=== PATIENT | male | born 1995 | race Caucasian/White ===

== ENCOUNTER 2024-04-20 02:30 | Emergency (ER) | payer OTHER, SELFPAY ==
[2024-04-20] VITALS (7 sets, daily range): BP systolic 111–119; BP diastolic 69–78; PULSE 79–101; RESP 16–23; TEMP 37.1; O2SAT 96–98; BMI 30.2
--- NOTE | 2024-04-20 02:34 | EKG_ITS ---
[address] [address] Test Date: 2024-04-20 Pat Name: Jose Maria Stephens Department: [facility] Room: Gender: Male [employer]: SANGITA : 1995 Requested By: Order Number: [id number] Reading MD: Tyrone Champagne Measurements Intervals [place] Rate: 90 P: 50 [place]: 154 QRS: 16 QRSD: 96 T: 11 QT: 330 QTc: 403 Interpretive Statements Normal sinus rhythm Electronically Signed On 04-23-2024 8:30:05 PDT by Tyrone Champagne
--- NOTE | 2024-04-20 02:41 | ED.GENADULT ---
HPI - General Adult General Chief complaint: Arrhythmia/Palpitations Stated complaint: left arm tingling, afib Time Seen by Provider: 04/20/24 02:34 History of Present Illness HPI narrative: 78-year-old male with history of SVT since 2013, he believes 3 prior episodes, taking metoprolol tartrate 25 mg twice daily in the past, ran out of this prescription a few weeks ago, tonight having fast heart rate palpitation like symptoms, his apple watch indicated that he might be in atrial fibrillation/flutter, here for further evaluation. No prior atrial fibrillation/flutter diagnosis. He had some transient left arm tingling sensation that has seemed to resolve without specific treatment/maneuvers. He would like refill of his metoprolol tartrate medication. Related Data Previous Rx's Medication Instructions Recorded metoprolol tartrate 25 mg tablet 25 mg PO BID #60 tabs 04/20/24 Allergies Allergy/AdvReac Type Severity Reaction Status Date / Time Penicillins Allergy Hives Verified 04/20/24 02:45 Patient History Social History Smoking Status: Current every day smoker Exam Narrative Exam Narrative: GENERAL: Well-developed patient, in mild distress. HEAD: Atraumatic. Normocephalic. EYES: Pupils equal round and reactive. Extraocular motions intact. No scleral icterus. No injection or drainage. ENT: Nose without bleeding, purulent drainage. Throat without erythema, tonsillar hypertrophy or exudate. Airway patent. NECK: Trachea midline. Non tender CARDIOVASCULAR: Regular rate and rhythm without murmurs, gallops, or rubs. RESPIRATORY: Clear to auscultation. Breath sounds equal bilaterally. No wheezes, rales, or rhonchi. GASTROINTESTINAL: Abdomen soft, non-tender, nondistended. EXTREMITIES: No edema or joint tenderness. BACK: Nontender without deformity or crepitance. No flank tenderness. NEURO: AOx3. Motor functions grossly nonfocal SKIN: No rash or erythema of visible areas Initial Vital Signs Initial Vital Signs: Vital Signs Temperature 98.7 F 04/20/24 02:46 Pulse Rate 101 H 04/20/24 02:46 Respiratory Rate 16 04/20/24 02:46 Blood Pressure 117/78 04/20/24 02:46 Pulse Oximetry 96 04/20/24 02:46 Oxygen Delivery Method Room Air 04/20/24 02:46 Course Orders Ordered: Discontinued Medications Metoprolol Succinate (Metoprolol Er 25 Mg Tablet) 25 mg PO NOW ONE Stop: 04/20/24 03:01 Last Admin: 04/20/24 03:08 Dose: Not Given Documented By: NARDA Metoprolol Tartrate (Metoprolol Ir 25 Mg Tablet) 25 mg PO NOW ONE Stop: 04/20/24 03:05 Last Admin: 04/20/24 03:07 Dose: 25 mg Documented By: NARDA Vital Signs Vital signs: Vital Signs - 8 hr 04/20/24 02:46 04/20/24 02:54 04/20/24 03:00 Temperature 98.7 F Pulse Rate 101 H 89 92 H Respiratory Rate 16 22 19 Blood Pressure 117/78 Pulse Oximetry 96 97 98 Oxygen Delivery Method Room Air 04/20/24 03:04 04/20/24 03:04 04/20/24 03:30 Temperature Pulse Rate 94 H 94 H Respiratory Rate 23 23 Blood Pressure 119/73 Pulse Oximetry 97 96 Oxygen Delivery Method Room Air 04/20/24 03:30 04/20/24 04:00 04/20/24 04:00 Temperature Pulse Rate 88 Respiratory Rate 19 Blood Pressure 118/71 116/69 Pulse Oximetry 96 Oxygen Delivery Method 04/20/24 04:30 04/20/24 04:30 Temperature Pulse Rate 79 Respiratory Rate 17 Blood Pressure 111/69 Pulse Oximetry 96 Oxygen Delivery Method Room Air Medical Decision Making Lab Data Lab results reviewed: Yes I reviewed the patient's lab results. Lab results narrative: White blood cell count 8000, hemoglobin 15.7, platelets adequate. Basic metabolic panel results unremarkable. ALT 83 mild elevation, other liver functions normal. Lipase normal. Troponin negative. BNP normal. 04/20/24 02:44 04/20/24 02:44 Labs: Lab Results 04/20/24 Range/Units 02:44 WBC 8.0 (4.5-11.0) X10^3/uL RBC 5.38 (4.5-5.9) X10^6/uL Hgb 15.7 (13.5-17.5) g/dL Hct 46.0 (41-53) % MCV 85.4 (80-100) fL MCH 29.2 (26-34) PG MCHC 34.1 (30-36) % RDW 14.0 (11.6-14.8) % Plt Count 308 (150-400) X10^3/uL Neut % (Auto) 56.0 (50-75) % Lymph % (Auto) 33.2 (25-40) % [place] % (Auto) 9.1 (3-14) % Eos % (Auto) 1.2 L (2-4) % Baso % (Auto) 0.5 (0-2) % Neut # (Auto) 4500 (5057-5003) /uL Lymph # (Auto) 2600 (8219-5435) /uL [place] # (Auto) 700 (0-900) /uL Eos # (Auto) 100 (0-450) /uL Baso # (Auto) 0 (0-100) /uL PT 11.0 (9.4-12.5) SECONDS INR 1.0 (0.9-1.3) APTT 34 (25.1-36.5) SECONDS Sodium 140 (137-145) mmol/L Potassium 4.3 (3.4-5.1) mmol/L Chloride 104 (98-107) mmol/L Carbon Dioxide 24 (22-32) mmol/L BUN 19 (9-20) mg/dL Creatinine 1.16 (0.66-1.25) mg/dL Estimated GFR > 60 (>60) mL/min BUN/Creatinine Ratio 16.4 (6-22) Glucose 99 (70-100) mg/dL Calcium 9.2 (8.4-10.2) mg/dL Magnesium 1.7 (1.6-2.3) mg/dL Total Bilirubin 0.6 (0.2-1.3) mg/dL AST 45 (17-59) IU/L ALT 83 H (<50) IU/L Alkaline Phosphatase 69 (38-126) U/L Total Creatine Kinase 164 (55-170) U/L Troponin I < 0.012 (0.01-0.034) ng/mL NT-Pro-B Natriuret Pep < 20 (<125) pg/mL Total Protein 8.8 H (6.3-8.2) g/dL Albumin 5.0 (3.5-5.0) g/dL Globulin 3.8 (1.7-4.1) g/dL Albumin/Globulin Ratio 1.3 (1.0-2.8) Lipase 87 (23-300) U/L ECG Data Attestation: I personally reviewed and interpreted this ECG as follows: Interpretation: Normal sinus rhythm with rate 90, no obvious ST segment elevation or depression changes. DC 154, QRS 96, QTC 403. MDM Narrative Medical decision making narrative: 28-year-old male with history of SVT previously on metoprolol but ran out, having palpitations and heart racing symptoms. Apple watch recording had concerns about atrial fibrillation/flutter which would be new diagnosis if confirmed. EKG here showed sinus rhythm. No ectopy on monitor. Screening labs sent were unremarkable. Troponin negative. Chest x-ray single view. Impressions: ?No acute findings.? See teleradiology report. Initial lab studies unremarkable, as above. Metoprolol tartrate 25 mg oral dose given, prescription sent to his pharmacy for refill of metoprolol tartrate 25 mg p.o. b.i.d., one month supply. Patient initially seemed amenable to waiting for interval repeat troponin blood test, then decided he would not want to have repeat troponin. Encouraged to take his metoprolol tartrate refills. Follow up with PCP advised. Discharge Plan Departure Patient Disposition: Home Clinical Impression: Palpitations, History of supraventricular tachycardia Instructions: DI for Arrhythmias Activity Restrictions/Additional Instructions: Mr Stephens, History of SVT since at least 2013, on metoprolol in the past but ran out of this medication, now having palpitation and heart racing symptoms, you are apple watch indicated that you might be having atrial fibrillation/flutter which would be a new rhythm diagnosis. EKG shows normal sinus rhythm. Blood testing showed normal electrolytes, no evidence of heart attack on initial troponin. You declined having repeat interval troponin drawn. Oral metoprolol tartrate dose given, with prescription sent to your pharmacy for restart. Consider Holter heart monitoring in follow up. Discuss this with your regular provider in follow up. Return earlier to this/nearest emergency department for any change worsening symptoms or any concerns prior. Thank you for allowing our team to evaluate you today. Prescriptions: New metoprolol tartrate 25 mg tablet 25 mg PO BID Qty: 60 0RF Stand Alone Forms: Patient Portal/API/Survey
--- NOTE | 2024-04-20 02:52 | DI.RAD.S_ITS ---
PROCEDURE: XR CHEST 1V INDICATIONS: chest pain TECHNIQUE: One view of the chest was acquired. COMPARISON: None. FINDINGS: Surgical changes and devices: None. Lungs and pleura: Lungs are clear. No pleural effusions or pneumothorax. Mediastinum: Mediastinal contours appear normal. Heart size is normal. Bones and chest wall: No suspicious bony lesions. Overlying soft tissues appear unremarkable. IMPRESSION: No acute cardiopulmonary abnormality is seen. There is no significant discrepancy when compared to the overnight preliminary report. Approved by: Oseas Paul M.D. on 04/20/2024 at 8:12
[2024-04-20 03:00] LABS: Add Manual Diff / Slide Review NO; Basophils Absolute Auto 0 /uL (0-100); Basophils Percent Auto 0.5 % (0-2); Eosinophils Absolute Auto 100 /uL (0-450); Eosinophils Percent Auto 1.2 % (2-4); Hemoglobin 15.7 g/dL (13.5-17.5); Lymphocytes Absolute Auto 2600 /uL (1100-4500); Lymphocytes Percent Auto 33.2 % (25-40); Mean Corpuscular HGB Conc 34.1 % (30-36); Mean Corpuscular Hemoglobin 29.2 PG (26-34); Mean Corpuscular Volume 85.4 fL (80-100); Monocytes Absolute Auto 700 /uL (0-900); Monocytes Percent Auto 9.1 % (3-14); Neutrophils Absolute Auto 4500 /uL (1500-7000); Platelet Count 308 X10^3/uL (150-400); Red Blood Cell Count 5.38 X10^6/uL (4.5-5.9)
[2024-04-20 03:02] LABS: Alanine Aminotransferase 83 IU/L (<50); Albumin Globulin Ratio 1.3 (1.0-2.8); Alkaline Phosphatase 69 U/L (38-126); Aspartate Aminotransferase 45 IU/L (17-59); BUN Creatinine Ratio 16.4 (6-22); Bilirubin Total 0.6 mg/dL (0.2-1.3); Blood Urea Nitrogen 19 mg/dL (9-20); Calcium 9.2 mg/dL (8.4-10.2); Carbon Dioxide 24 mmol/L (22-32); Chloride 104 mmol/L (98-107); Creatine Kinase 164 U/L (55-170); Estimated Glomerular Filt Rate > 60 mL/min (>60); Globulin 3.8 g/dL (1.7-4.1); Glucose 99 mg/dL (70-100); HEMOLYSIS 22 (0-50); Lipase 87 U/L (23-300); Magnesium 1.7 mg/dL (1.6-2.3); Potassium 4.3 mmol/L (3.4-5.1); Sodium 140 mmol/L (137-145); Total Protein 8.8 g/dL (6.3-8.2)
[2024-04-20] MEDS: METOPROLOL IR 25 MG TABLET PO (03:07)
[2024-04-20 03:14] LABS: NT-proBNP (BNP-Adult 18+) < 20 pg/mL (<125); Troponin I < 0.012 ng/mL (0.01-0.034)
[2024-04-20 03:37] LABS: PTT Partial Thromboplastin Tim 34 SECONDS (25.1-36.5)
--- NOTE | 2024-04-20 04:44 | PC.NURSE ---
Pt declined repeat tropinin blood draw, provider aware.
== END 2024-04-20 04:55 | disposition home or self-care (01) ==
PROVIDERS: Emergency Provider Emergency Medicine
DX: R00.2 Palpitations (principal); R07.9 Chest pain, unspecified; Z86.79 Personal history of other diseases of the circulatory system
CPT/HCPCS: 36415; 71045; 80053; 82550; 83690; 83735; 83880; 84484; 85025; 85610; 85730; 93005; 99284